=== PATIENT | female | born 1980 | race Caucasian/White ===

== ENCOUNTER 2021-11-10 11:33 | Emergency (ER) | payer OTHER ==
[2021-11-10 13:08] LABS: INFLUENZA A NAA NEGATIVE (NEGATIVE)
[2021-11-10 14:07] LABS: CORONAVIRUS 2019 SARS-COV-2 POSITIVE (NEGATIVE)
== END 2021-11-10 14:30 | disposition home or self-care (01) ==
LOC: FER 11:33
PROVIDERS: Physician Assistant
DX: U07.1 COVID-19 (principal); F17.200 Nicotine dependence, unspecified, uncomplicated
CPT/HCPCS: 71045; U0002